=== PATIENT | male | born 1950 | race Caucasian/White ===

== ENCOUNTER 2023-10-29 15:09 | Outpatient (CLI) | payer MEDICARE | END 2023-10-29 15:10 | disposition home or self-care (01) | LOC: CSHMRI 15:09 | PROVIDERS: ATTEND Family Medicine | DX: M50.022 Cervical disc disorder at C5-C6 level with myelopathy (principal); M47.812 Spondylosis without myelopathy or radiculopathy, cervical region | CPT/HCPCS: 72141 ==